=== PATIENT | female | born 2000 | race African-American/Black ===

== ENCOUNTER 2020-10-29 21:37 | Emergency (ER) | payer OTHER ==
[~2020-10-29] VITALS: Ht 154.9 cm; Wt 73.9 kg
== END 2020-10-29 23:08 | disposition home or self-care (01) ==
LOC: FSED 22:32
DX: R05 Cough (principal); Z20.822 Contact with and (suspected) exposure to COVID-19; Z33.1 Pregnant state, incidental
CPT/HCPCS: 99282